=== PATIENT | female | born 1985 | race American Indian/Alaskan Native ===

== ENCOUNTER 2016-12-12 18:11 | Emergency (ER) | payer MEDICAID ==
[2016-12-12 20:41] LABS: CHLORIDE,CL 108 mmol/L (101-111); SODIUM,NA 143 mmol/L (135-145)
[2016-12-12] MEDS ORDERED: Sodium Chloride 0.9% 1,000 ML IV ONE (21:17)
[2016-12-12] MEDS ORDERED: Iopamidol 612 MG/ML 100 ML Bottle IVPUSH ONE (21:30)
--- NOTE | 2016-12-12 22:34 | EDM.PDOC ---
ED HPI GENERAL MEDICAL PROBLEM - General Chief Complaint: Abdominal Pain Stated Complaint: ABD PAINS, [id number] Time Seen by Provider: 12/12/16 20:15 Source of Information: Reports: Patient History Limitations: Reports: No Limitations - History of Present Illness INITIAL COMMENTS - FREE TEXT/NARRATIVE: abdominal pain since 2pm, points epigastric area then lower abdomen. States was to have IUD out in August and appointment rescheduled twice and never been back, concerned pain today is from that and just wants Mirana taken out. No menses since insertion of Mirina, Last BM today. No vomiting. Has not tried anything for pain, more comfortable lying on right side. No loss of appetite, requesting drink and fluids while waiting. Bilateral Lower Abdomen Pain Score (Numeric/FACES): 10 - Related Data Allergies Allergy/AdvReac Type Severity Reaction Status Date / Time No Known Allergies Allergy Verified 12/12/16 19:18 Home Meds: Home Meds . [No Known Home Meds] 12/12/16 [History] Past Medical History - Past Health History Medical/Surgical History: Denies Medical/Surgical History HEENT History: Reports: None Cardiovascular History: Reports: None Respiratory History: Reports: None Gastrointestinal History: Reports: None Genitourinary History: Reports: None FIRE FIGHTERS DISPATCHER History: Reports: None Musculoskeletal History: Reports: None Neurological History: Reports: None Psychiatric History: Reports: None Endocrine/Metabolic History: Reports: None Hematologic History: Reports: None Immunologic History: Reports: None Oncologic (Cancer) History: Reports: None Dermatologic History: Reports: None - Infectious Disease History Infectious Disease History: Reports: None - Past Surgical History Head Surgeries/Procedures: Reports: None Social & Family History - Family History Family Medical History: Noncontributory - Tobacco Use Smoking Status *Q: Current Every Day Smoker Years of Tobacco use: 18 Packs/Tins Daily: 0.3 Used Tobacco, but Quit: No Second Hand Smoke Exposure: Yes - Alcohol Use Days Per Week of Alcohol Use: 0 - Recreational Drug Use Recreational Drug Use: No Drug Use in Last 12 Months: Yes Recreational Drug Type: Reports: Ecstasy, Methamphetamine Recreational Drug Use Frequency: Daily - Living Situation & Occupation Living situation: Reports: with Significant Other ED ROS GENERAL - Review of Systems Review Of Systems: ROS reveals no pertinent complaints other than HPI. ED EXAM, GI/ABD - Physical Exam Exam: See Below Exam Limited By: No Limitations General Appearance: Alert, Mild Distress Ears: Normal External Exam Throat/Mouth: Normal Inspection Head: Atraumatic, Normocephalic Neck: Normal Inspection Respiratory/Chest: No Respiratory Distress, Lungs Clear, No Accessory Muscle Use Cardiovascular: Normal Peripheral Pulses, Regular Rate, Rhythm GI/Abdominal: Normal Bowel Sounds, Soft, Tenderness (generalized). No: Guarding , Rebound, Rigidity Extremities: Normal Inspection Neurological: Alert, Oriented, Normal Cognition Course - Vital Signs Last Recorded V/S: Last Vital Signs Temp 97.7 F 12/12/16 22:38 Pulse 70 12/12/16 22:38 Resp 18 12/12/16 22:38 BP 122/72 12/12/16 22:38 Pulse Ox 100 12/12/16 22:38 - Orders/Labs/Meds Labs: Laboratory Tests 12/12/16 12/12/16 12/12/16 Range/Units 19:24 19:24 19:24 WBC (5.0-10.0) 10^3/uL RBC (4.2-5.4) 10^6/uL Hgb (12.0-16.0) g/dL Hct (37.0-47.0) % MCV (80-100) fL MCH (27.0-34.0) pg MCHC (33.0-35.0) g/dL Plt Count (150-450) 10^3/uL Neut % (Auto) (42.2-75.2) % Lymph % (Auto) (20.5-50.1) % Parker % (Auto) (2-8) % Eos % (Auto) (1.0-3.0) % Baso % (Auto) (0.0-1.0) % Sodium (135-145) mmol/L Potassium (3.6-5.0) mmol/L Chloride (101-111) mmol/L Carbon Dioxide (21.0-31.0) mmol/L Anion Gap BUN (7-18) mg/dL Creatinine (0.6-1.3) mg/dL Est Cr Clr Drug Dosing mL/min Estimated GFR (MDRD) BUN/Creatinine Ratio Glucose (74-105) mg/dL Calcium (8.4-10.2) mg/dl Total Bilirubin (0.2-1.0) mg/dL AST (10-42) IU/L ALT (10-60) IU/L Alkaline Phosphatase (42-121) IU/L Total Protein (6.7-8.2) g/dl Albumin (3.2-5.5) g/dl Globulin Albumin/Globulin Ratio Amylase (28-100) U/L Lipase (22-51) U/L Urine Color Yellow (YELLOW) Urine Appearance Slightly cloudy (CLEAR) Urine pH 5.5 (5.0-9.0) Ur Specific Wright >= 1.030 (1.005-1.030) Urine Protein Trace H (NEGATIVE) Urine Glucose (UA) Negative (NEGATIVE) Urine Ketones 15 H (NEGATIVE) Urine Occult Blood Negative (NEGATIVE) Urine Nitrite Negative (NEGATIVE) Urine Bilirubin Small H (NEGATIVE) Urine Urobilinogen 0.2 (0.2-1.0) mg/dL Ur Leukocyte Esterase Negative (NEGATIVE) Urine RBC 0-5 /HPF Urine WBC 0-5 (0-5/HPF) /HPF Ur Epithelial Cells Moderate H /HPF Urine Bacteria Many H (0-FEW/HPF) /HPF Urine Mucus Moderate H /LPF Urine HCG, Qual Negative Urine Opiates Screen Negative (NEGATIVE) Ur Oxycodone Screen Positive H (NEGATIVE) Urine Methadone Screen Negative (NEGATIVE) Ur Barbiturates Screen Negative (NEGATIVE) U Tricyclic Antidepress Negative (NEGATIVE) Ur Phencyclidine Scrn Negative (NEGATIVE) Ur Amphetamine Screen Negative (NEGATIVE) U Methamphetamines Scrn Negative (NEGATIVE) Urine MDMA Screen Negative (NEGATIVE) U Benzodiazepines Scrn Negative (NEGATIVE) Urine Cocaine Screen Negative (NEGATIVE) U Marijuana (THC) Screen Negative (NEGATIVE) 12/12/16 12/12/16 Range/Units 20:15 20:15 WBC 12.7 H (5.0-10.0) 10^3/uL RBC 4.55 (4.2-5.4) 10^6/uL Hgb 13.1 (12.0-16.0) g/dL Hct 40.3 (37.0-47.0) % MCV 88.6 (80-100) fL MCH 28.8 (27.0-34.0) pg MCHC 32.5 L (33.0-35.0) g/dL Plt Count 356 (150-450) 10^3/uL Neut % (Auto) 83.6 H (42.2-75.2) % Lymph % (Auto) 10.7 L (20.5-50.1) % Parker % (Auto) 5.3 (2-8) % Eos % (Auto) 0.2 L (1.0-3.0) % Baso % (Auto) 0.2 (0.0-1.0) % Sodium 143 (135-145) mmol/L Potassium 4.1 (3.6-5.0) mmol/L Chloride 108 (101-111) mmol/L Carbon Dioxide 26.0 (21.0-31.0) mmol/L Anion Gap 13.1 BUN 8 (7-18) mg/dL Creatinine 0.7 (0.6-1.3) mg/dL Est Cr Clr Drug Dosing 87.87 mL/min Estimated GFR (MDRD) > 60 BUN/Creatinine Ratio 11.42 Glucose 111 H (74-105) mg/dL Calcium 9.2 (8.4-10.2) mg/dl Total Bilirubin 0.4 (0.2-1.0) mg/dL AST 18 (10-42) IU/L ALT 21 (10-60) IU/L Alkaline Phosphatase 77 (42-121) IU/L Total Protein 7.5 (6.7-8.2) g/dl Albumin 4.1 (3.2-5.5) g/dl Globulin 3.4 Albumin/Globulin Ratio 1.21 Amylase 54 (28-100) U/L Lipase 21 L (22-51) U/L Urine Color (YELLOW) Urine Appearance (CLEAR) Urine pH (5.0-9.0) Ur Specific Wright (1.005-1.030) Urine Protein (NEGATIVE) Urine Glucose (UA) (NEGATIVE) Urine Ketones (NEGATIVE) Urine Occult Blood (NEGATIVE) Urine Nitrite (NEGATIVE) Urine Bilirubin (NEGATIVE) Urine Urobilinogen (0.2-1.0) mg/dL Ur Leukocyte Esterase (NEGATIVE) Urine RBC /HPF Urine WBC (0-5/HPF) /HPF Ur Epithelial Cells /HPF Urine Bacteria (0-FEW/HPF) /HPF Urine Mucus /LPF Urine HCG, Qual Urine Opiates Screen (NEGATIVE) Ur Oxycodone Screen (NEGATIVE) Urine Methadone Screen (NEGATIVE) Ur Barbiturates Screen (NEGATIVE) U Tricyclic Antidepress (NEGATIVE) Ur Phencyclidine Scrn (NEGATIVE) Ur Amphetamine Screen (NEGATIVE) U Methamphetamines Scrn (NEGATIVE) Urine MDMA Screen (NEGATIVE) U Benzodiazepines Scrn (NEGATIVE) Urine Cocaine Screen (NEGATIVE) U Marijuana (THC) Screen (NEGATIVE) Meds: Medications Discontinued Medications Generic Name Dose Route Start Last Admin Trade Name Chaseq PRN Reason Stop Dose Admin Sodium Chloride 1,000 mls @ 999 mls/hr 12/12/16 21:17 12/12/16 21:17 Normal Saline IV 12/12/16 22:17 999 mls/hr .BOLUS ONE Administration Iopamidol 100 ml 12/12/16 21:30 12/12/16 21:30 Isovue-300 (61%) IVPUSH 12/12/16 21:31 100 ml ONETIME ONE Administration Ketorolac Tromethamine 30 mg 12/12/16 22:37 12/12/16 22:40 Toradol IVPUSH 12/12/16 22:38 30 mg ONETIME ONE Administration - Radiology Interpretation Free Text/Narrative:: Abominal CT with contrast negative. - Re-Assessments/Exams Free Text/Narrative Re-Assessment/Exam: 12/12/16 22:30 Patient informed ER was not appropriate setting for IUD removal and would need to be by her primary in clinic. Patient informed of negative CT results. Large volume of stool is present in area of discomfort . Departure - Departure Time of Disposition: 22:31 Disposition: Home, Self-Care 01 Condition: good Clinical Impression: Constipation Abdominal pain Qualifiers: Abdominal location: upper abdomen, unspecified Qualified Code(s): R10.10 - Upper abdominal pain, unspecified - Discharge Information Instructions: Abdominal Pain, Adult, [id number] Referrals: PCP,None [Primary Care Provider] - Forms: ED Department Discharge Additional Instructions: follow up with [facility] care for IUD removal tylenol or ibuprofen for discomfort, warm pack to abdomen increase fluids fruit in diet.
[2016-12-12] MEDS ORDERED: Ketorolac 30 MG/ML SDV IVPUSH ONE (22:37)
[2016-12-12 22:38] VITALS: BP 122/72
== END 2016-12-12 22:48 | disposition home or self-care (01) ==
LOC: DL.ED 18:11
DX: K59.00 Constipation, unspecified (principal); R10.13 Epigastric pain; F17.210 Nicotine dependence, cigarettes, uncomplicated
CPT/HCPCS: 36415; 74177; 80053; 80305; 81001; 81025; 82150; 83690; 85025; 96361; 96374; 99284; J1885; J7030; Q9967

== ENCOUNTER 2017-01-06 15:48 | Emergency (ER) | payer MEDICAID | END 2017-01-06 18:42 | disposition left against medical advice (07) | LOC: DL.ED 15:48 | CPT/HCPCS: 99283 ==

== ENCOUNTER 2017-11-25 02:37 | Emergency (ER) | payer MEDICAID, SELFPAY ==
[2017-11-25] MEDS ORDERED: Iopamidol 612 MG/ML 100 ML Bottle IVPUSH ONE (02:41)
[2017-11-25 03:00] LABS: CHLORIDE,CL 107 mmol/L (101-111); SODIUM,NA 136 mmol/L (135-145)
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
== END 2017-11-25 06:56 ==
LOC: DL.ED 02:37
DX: F15.10 Other stimulant abuse, uncomplicated (principal); F10.129 Alcohol abuse with intoxication, unspecified; Y90.8 Blood alcohol level of 240 mg/100 ml or more; Y04.0XXA Assault by unarmed brawl or fight, initial encounter
CPT/HCPCS: 36415; 70450; 71260; 72125; 74177; 80053; 80305; 81001; 84703; 85025; 85610; 99291; 99292; G0480; Q9967

== ENCOUNTER 2017-11-27 20:05 | Emergency (ER) | payer MEDICAID | END 2017-11-27 20:13 | disposition left against medical advice (07) | LOC: DL.ED 20:05 | DX: Z53.21 Procedure and treatment not carried out due to patient leaving prior to being seen by health care provider (principal) ==

== ENCOUNTER 2018-01-23 18:58 | Emergency (ER) | payer SELFPAY ==
[2018-01-23] MEDS ORDERED: Penicillin G Benzathine/Procaine 600-600 1.2 Millunits/2 ML Syringe IM ONE (20:10)
--- NOTE | 2018-01-23 20:14 | EDM.PDOC ---
ED HPI GENERAL MEDICAL PROBLEM - General Chief Complaint: ENT Problem Stated Complaint: [id number] CANT SWALLOW TONSILS ARE SWOLLEN Time Seen by Provider: 01/23/18 20:05 Source of Information: Reports: Patient History Limitations: Reports: No Limitations - History of Present Illness INITIAL COMMENTS - FREE TEXT/NARRATIVE: This 32 yo female patient reports to the Ed with a sore throat that has been getting worse since Monday. The patient reports she has not been able to eat or drink due to the swelling and pain in the back of her throat. The patient has not been seen in the Clinic at this time for her current symptoms. 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 [No Known Home Meds] 12/12/16 [History] Past Medical History - Past Health History Medical/Surgical History: Denies Medical/Surgical History HEENT History: Reports: None Cardiovascular History: Reports: None Respiratory History: Reports: None Gastrointestinal History: Reports: None Genitourinary History: Reports: None FAMILY DEVELOPMENT SPECIALIST History: Reports: Other (See Below) Other FAMILY DEVELOPMENT SPECIALIST History: states she had the Mirena placed in 2011. Was to have it removed a couple years ago but has not done this. Musculoskeletal History: Reports: None Neurological History: Reports: None Psychiatric History: Reports: None Endocrine/Metabolic History: Reports: None Hematologic History: Reports: None Immunologic History: Reports: None Oncologic (Cancer) History: Reports: None Dermatologic History: Reports: None - Infectious Disease History Infectious Disease History: Reports: None - Past Surgical History Head Surgeries/Procedures: Reports: None Social & Family History - Family History Family Medical History: Noncontributory - Tobacco Use Smoking Status *Q: Current Every Day Smoker Years of Tobacco use: 10 Packs/Tins Daily: 1 - Caffeine Use Caffeine Use: Reports: Soda - Recreational Drug Use Recreational Drug Use: No - Living Situation & Occupation Living situation: Reports: with Significant Other ED ROS ENT - Review of Systems Review Of Systems: ROS reveals no pertinent complaints other than HPI. ED EXAM, ENT - Physical Exam Exam: See Below Exam Limited By: No Limitations General Appearance: Alert, WD/WN, Moderate Distress Eye Exam: Bilateral Eye: EOMI, Normal Inspection, PERRL Ears: Normal External Exam, Normal Canal, Hearing Grossly Normal, Normal TMs Nose: Normal Inspection, Normal Mucousa, No Blood Mouth/Throat: Muffled Voice, Tonsillar Erythema, Tonsillar Swelling Head: Atraumatic, Normocephalic Neck: Full Range of Motion, Lymphadenopathy (L), Lymphadenopathy (R) Respiratory/Chest: No Respiratory Distress, Lungs Clear, Normal Breath Sounds, No Accessory Muscle Use, Chest Non-Tender Cardiovascular: Normal Peripheral Pulses, Regular Rate, Rhythm, No Edema, No Gallop, No JVD, No Murmur, No Rub GI/Abdominal: Normal Bowel Sounds, Soft, Non-Tender, No Organomegaly, No Distention, No Abnormal Bruit, No Mass (Female) Exam: Deferred Rectal (Female) Exam: Deferred Back: Normal Inspection, Full Range of Motion Extremities: Normal Inspection, Normal Range of Motion, Non-Tender, No Pedal Edema, Normal Capillary Refill Neurological: Alert, Oriented, CN II-XII Intact, Normal Cognition, Normal Gait, Normal Reflexes, No Motor/Sensory Deficits Psychiatric: Normal Affect, Normal Mood Skin: Warm, Dry, Intact, Normal Color, No Rash Lymphatic: No Adenopathy Course - Vital Signs Last Recorded V/S: Last Vital Signs Temp 37.2 C 01/23/18 19:09 Pulse 105 H 01/23/18 19:09 Resp 15 01/23/18 19:09 BP 144/78 H 01/23/18 19:09 Pulse Ox 97 01/23/18 19:09 - Orders/Labs/Meds Meds: Medications Discontinued Medications Generic Name Dose Route Start Last Admin Trade Name Freq PRN Reason Stop Dose Admin Penicillin G Procaine/Benzathine 1.2 millunits 01/23/18 20:10 Bicillin C-R 600/600 IM 01/23/18 20:11 ONETIME ONE Departure - Departure Time of Disposition: 20:12 Disposition: Home, Self-Care 01 Condition: Fair Clinical Impression: Strep pharyngitis - Discharge Information *PRESCRIPTION DRUG MONITORING PROGRAM REVIEWED*: Not Applicable *COPY OF PRESCRIPTION DRUG MONITORING REPORT IN PATIENT MIKE: Not Applicable Instructions: Strep Throat, [id number] Referrals: PCP,None [Primary Care Provider] - Forms: ED Department Discharge Care Plan Goals: The patient was advised of the examination and lab results during the visit. The patient was given an injection of Bicillin while in the ED. The patient was discharged with a script for Azithromycin (500 mg) #5 to take 1 by mouth daily for 5 days (starting tomorrow). The patient was encouraged to take over-the- counter medications for temporary symptom relief. If the patient has any additional symptoms or concerns, the patient should follow-up with her primary care facility or return to the emergency department.
[2018-01-23 20:26] VITALS: BP 129/82
== END 2018-01-23 20:38 | disposition home or self-care (01) ==
LOC: DL.ED 18:58
DX: J02.0 Streptococcal pharyngitis (principal); F17.210 Nicotine dependence, cigarettes, uncomplicated
CPT/HCPCS: 87430; 96372; 99283; J0558

== ENCOUNTER 2018-04-05 19:35 | Emergency (ER) | payer MEDICAID ==
[2018-04-05 22:23] VITALS: BP 117/69
[2018-04-06] MEDS ORDERED: Ketorolac 30 MG/ML SDV IM ONE (01:21)
--- NOTE | 2018-04-06 01:26 | EDM.PDOC ---
ED HPI GENERAL MEDICAL PROBLEM - General Chief Complaint: ENT Problem Stated Complaint: SWOLLEN TONSILS [id number] Time Seen by Provider: 04/05/18 22:30 Source of Information: Reports: Patient History Limitations: Reports: No Limitations - History of Present Illness INITIAL COMMENTS - FREE TEXT/NARRATIVE: c/o severe sore throat, "needs something for pain" cant sleep. At [facility] today, flu and strep negative. No fever or cough.Stated given bottle of liquid amoxicillin and drank most of the bottle and still not helping. Throat Pain Score (Numeric/FACES): 10 - Related Data Allergies Allergy/AdvReac Type Severity Reaction Status Date / Time No Known Allergies Allergy Verified 04/05/18 22:18 Home Meds: Home Meds Amoxicillin 10 ml PO BID 04/05/18 [History] Past Medical History - Past Health History Medical/Surgical History: Denies Medical/Surgical History HEENT History: Reports: None Cardiovascular History: Reports: None Respiratory History: Reports: None Gastrointestinal History: Reports: None Genitourinary History: Reports: None JUDGE'S CLERK History: Reports: Other (See Below) Other JUDGE'S CLERK History: states she had the Mirena placed in 2011. Was to have it removed a couple years ago but has not done this. Musculoskeletal History: Reports: None Neurological History: Reports: None Psychiatric History: Reports: None Endocrine/Metabolic History: Reports: None Hematologic History: Reports: None Immunologic History: Reports: None Oncologic (Cancer) History: Reports: None Dermatologic History: Reports: None - Infectious Disease History Infectious Disease History: Reports: None - Past Surgical History Head Surgeries/Procedures: Reports: None Social & Family History - Family History Family Medical History: Noncontributory - Tobacco Use Smoking Status *Q: Never Smoker - Caffeine Use Caffeine Use: Reports: Coffee, Energy Drinks, Soda - Recreational Drug Use Recreational Drug Use: No - Living Situation & Occupation Living situation: Reports: with Significant Other ED ROS ENT - Review of Systems Review Of Systems: ROS reveals no pertinent complaints other than HPI. ED EXAM, ENT - Physical Exam Exam: See Below Exam Limited By: No Limitations General Appearance: Alert, Anxious Eye Exam: Bilateral Eye: PERRL Ears: Normal External Exam, Normal TMs Nose: Normal Inspection Mouth/Throat: Pharyngeal Erythema, Tonsillar Erythema, Tonsillar Swelling. No: Uvular Deviation, Uvular Edema Head: Atraumatic, Normocephalic Neck: Normal Inspection, Full Range of Motion Respiratory/Chest: No Respiratory Distress, Lungs Clear, Normal Breath Sounds Cardiovascular: Normal Peripheral Pulses, Regular Rate, Rhythm GI/Abdominal: Normal Bowel Sounds Extremities: Normal Inspection Neurological: Alert, Oriented Psychiatric: Anxious, Other (tearful, swearing frequently, , frequent ) Skin: Warm, Dry, Intact, Normal Color. No: Rash Course - Vital Signs Last Recorded V/S: Last Vital Signs Temp 97.9 F 04/05/18 22:20 Pulse 88 04/05/18 22:20 Resp 16 04/05/18 22:20 BP 117/69 04/05/18 22:20 Pulse Ox 100 04/05/18 22:20 - Orders/Labs/Meds Meds: Medications Discontinued Medications Generic Name Dose Route Start Last Admin Trade Name Kt PRN Reason Stop Dose Admin Ketorolac Tromethamine 30 mg 04/06/18 01:21 04/06/18 01:30 Toradol IM 04/06/18 01:22 30 mg ONETIME ONE Administration - Re-Assessments/Exams Free Text/Narrative Re-Assessment/Exam: Toradol given, instructed by RN would need to wait following injection, swearing at nurse, stating she would not wait. Agitated that was not getting anything additional to treat pain. Signed AMA form and left Departure - Departure Time of Disposition: 01:21 Disposition: Against Medical Advice 07 Condition: Good Clinical Impression: Pharyngitis Qualifiers: Pharyngitis/tonsillitis etiology: unspecified etiology Qualified Code(s): J02.9 - Acute pharyngitis, unspecified - Discharge Information *PRESCRIPTION DRUG MONITORING PROGRAM REVIEWED*: No Instructions: Sore Throat, [id number] Referrals: PCP,None [Ordering Only Provider] - Forms: ED Department Discharge Additional Instructions: continue alternating tylenol 650mg and ibuprofen 600mg every 4 hours as needed for fever/ discomfort chloraseptic throat spray as needed benadryl 25mg at bedtime as needed for sleep salt water gargles every 2 hours as needed increase fluid intake continue antibiotic as directed
== END 2018-04-06 01:35 | disposition left against medical advice (07) ==
LOC: DL.ED 19:35
DX: J02.9 Acute pharyngitis, unspecified (principal)
CPT/HCPCS: 87081; 87430; 96372; 99283; J1885

== ENCOUNTER 2018-10-27 18:47 | Emergency (ER) | payer MEDICAID ==
[2018-10-27] MEDS ORDERED: Penicillin G Potassium 5 MILLUNITS in Sodium Chloride 0.9% 100 ML IV ONE (19:03)
[2018-10-27] MEDS ORDERED: Sodium Chloride 0.9% 1,000 ML IV ONE (19:03)
--- NOTE | 2018-10-27 19:09 | EDM.PDOC ---
ED HPI GENERAL MEDICAL PROBLEM - General Chief Complaint: ENT Problem Stated Complaint: THROAT HURTS Time Seen by Provider: 10/27/18 19:04 Source of Information: Reports: Patient History Limitations: Reports: No Limitations - History of Present Illness INITIAL COMMENTS - FREE TEXT/NARRATIVE: onset Sx last night, worse today, hard to swallow. 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, NSAIDS Throat Pain Score (Numeric/FACES): 10 - Related Data Allergies Allergy/AdvReac Type Severity Reaction Status Date / Time No Known Allergies Allergy Verified 10/27/18 18:54 Home Meds: Home Meds Buprenorphine HCl/Naloxone HCl [Suboxone 12 mg-3 mg Sl Film] 1 dose PO DAILY [History] buPROPion [Wellbutrin] 100 mg PO BEDTIME 10/27/18 [History] Past Medical History - Past Health History Medical/Surgical History: Denies Medical/Surgical History HEENT History: Reports: None Cardiovascular History: Reports: None Respiratory History: Reports: None Gastrointestinal History: Reports: None Genitourinary History: Reports: None REGULATORY ANALYST History: Reports: Other (See Below) Other REGULATORY ANALYST History: states she had the Mirena placed in 2011. Was to have it removed a couple years ago but has not done this. Musculoskeletal History: Reports: None Neurological History: Reports: None Psychiatric History: Reports: None Endocrine/Metabolic History: Reports: None Hematologic History: Reports: None Immunologic History: Reports: None Oncologic (Cancer) History: Reports: None Dermatologic History: Reports: None - Infectious Disease History Infectious Disease History: Reports: None - Past Surgical History Head Surgeries/Procedures: Reports: None Social & Family History - Family History Family Medical History: Noncontributory - Caffeine Use Caffeine Use: Reports: Coffee, Energy Drinks, Soda - Living Situation & Occupation Living situation: Reports: with Significant Other ED ROS ENT - Review of Systems Review Of Systems: ROS reveals no pertinent complaints other than HPI. ED EXAM, ENT - Physical Exam Exam: See Below Exam Limited By: No Limitations General Appearance: Alert, WD/WN, Mild Distress, Other (discomfort) Ears: Hearing Grossly Normal Mouth/Throat: Pharyngeal Erythema, Tonsillar Erythema, Tonsillar Swelling, Other (right>, peritonsillar abscess without drainage) Head: Atraumatic Neck: Non-Tender, Full Range of Motion, Lymphadenopathy (R) Respiratory/Chest: No Respiratory Distress, Lungs Clear, Normal Breath Sounds Cardiovascular: Regular Rate, Rhythm GI/Abdominal: Soft, Non-Tender Neurological: Alert, Oriented, Normal Cognition, Normal Gait, No Motor/Sensory Deficits Psychiatric: Flat Affect Skin: Warm, Dry, Normal Color Lymphatic: Adenopathy (right cervical) Course - Vital Signs Last Recorded V/S: Last Vital Signs Temp 35.9 C 10/27/18 19:10 Pulse 84 10/27/18 19:10 Resp 18 10/27/18 19:10 BP 121/70 10/27/18 19:10 Pulse Ox 99 10/27/18 19:10 - Orders/Labs/Meds Orders: Active Orders 24 hr Category Date Time Status CULTURE STREP A CONFIRMATION [RM] Stat Lab 10/27/18 07:05 Results STREP SCRN A RAPID W CULT CONF [] Stat Lab 10/27/18 07:05 Results Meds: Medications Discontinued Medications Generic Name Dose Route Start Last Admin Trade Name Freq PRN Reason Stop Dose Admin Penicillin G Potassium 5 100 mls @ 200 mls/hr 10/27/18 19:03 10/27/18 19:47 millunits/ Sodium Chloride IV 10/27/18 19:32 200 mls/hr ONETIME ONE Administration Sodium Chloride 1,000 mls @ 999 mls/hr 10/27/18 19:03 10/27/18 19:21 Normal Saline IV 10/27/18 20:03 999 mls/hr .BOLUS ONE Administration - Re-Assessments/Exams Free Text/Narrative Re-Assessment/Exam: 10/27/18 20:51 re-exam; s/p IV + Rx = much better. Departure - Departure Time of Disposition: 20:53 Disposition: Home, Self-Care 01 Condition: Good Clinical Impression: Peritonsillar abscess - Discharge Information Instructions: Peritonsillar Abscess, [id number] Forms: ED Department Discharge Additional Instructions: 1) avoid solid foods next 48 hours 2) have liquids and soft foods 3) take tylenol or motrin for fever 4) recheck if feels worse rx given; z-wander - My Orders Last 24 Hours: My Active Orders 10/27/18 07:05 CULTURE STREP A CONFIRMATION [RM] Stat STREP SCRN A RAPID W CULT CONF [] Stat - Assessment/Plan Last 24 Hours: My Active Orders 04/27/19 07:05 CULTURE STREP A CONFIRMATION [RM] Stat STREP SCRN A RAPID W CULT CONF [RM] Stat
[2018-10-27 19:16] VITALS: BP 121/70
== END 2018-10-27 20:59 | disposition home or self-care (01) ==
LOC: DL.ED 18:47
DX: J36 Peritonsillar abscess (principal)
CPT/HCPCS: 87081; 87430; 96365; 99283; J2540; J7030; J7050

== ENCOUNTER 2019-09-23 21:51 | Emergency (ER) | payer MEDICAID, OTHER ==
[2019-09-23 22:07] VITALS: BP 120/76; PULSE 109
== END 2019-09-23 22:44 | disposition left against medical advice (07) ==
LOC: DL.ED 21:51
DX: Z53.21 Procedure and treatment not carried out due to patient leaving prior to being seen by health care provider (principal)
CPT/HCPCS: 87804

== ENCOUNTER 2020-05-23 19:31 | Emergency (ER) | payer MEDICAID, OTHER ==
[2020-05-23 19:54] VITALS: BP 134/69; PULSE 81
[2020-05-23] MEDS ORDERED: Sulfamethoxazole/Trimethoprim 800-160 MG Tab PO ONE (20:22)
[2020-05-23] MEDS ORDERED: Phenazopyridine 95 MG Tab PO ONE (20:22)
--- NOTE | 2020-05-23 20:29 | EDM.PDOC ---
ED HPI GENERAL MEDICAL PROBLEM - General Chief Complaint: Genitourinary Problem Stated Complaint: URINATION PAIN AND IRRITATION Time Seen by Provider: 05/23/20 20:24 Source of Information: Reports: Patient History Limitations: Reports: No Limitations - History of Present Illness INITIAL COMMENTS - FREE TEXT/NARRATIVE: onset Sx yesterday Lower Abdomen Pain Score (Numeric/FACES): 6 - Related Data Allergies Allergy/AdvReac Type Severity Reaction Status Date / Time No Known Allergies Allergy Verified 05/23/20 19:54 Home Meds: Home Meds . [No Known Home Meds] 09/23/19 [History] Past Medical History - Past Health History Medical/Surgical History: Denies Medical/Surgical History HEENT History: Reports: None Cardiovascular History: Reports: None Respiratory History: Reports: None Gastrointestinal History: Reports: None Genitourinary History: Reports: None APPLIED ANTHROPOLOGIST History: Reports: Other (See Below) Other APPLIED ANTHROPOLOGIST History: states she had the Mirena placed in 2011. Was to have it removed a couple years ago but has not done this. Musculoskeletal History: Reports: None Neurological History: Reports: None Psychiatric History: Reports: None Endocrine/Metabolic History: Reports: None Hematologic History: Reports: None Immunologic History: Reports: None Oncologic (Cancer) History: Reports: None Dermatologic History: Reports: None - Infectious Disease History Infectious Disease History: Reports: None - Past Surgical History Head Surgeries/Procedures: Reports: None Social & Family History - Family History Family Medical History: No Pertinent Family History - Tobacco Use Tobacco Use Status *Q: Current Every Day Tobacco User Years of Tobacco use: 2 Packs/Tins Daily: 0.2 - Caffeine Use Caffeine Use: Reports: Coffee, Energy Drinks - Recreational Drug Use Recreational Drug Use: No - Living Situation & Occupation Living situation: Reports: with Significant Other ED ROS GENERAL - Review of Systems Review Of Systems: Comprehensive ROS is negative, except as noted in HPI. ED EXAM, RENAL/ - Physical Exam Exam: See Below Exam Limited By: No Limitations General Appearance: Alert, WD/WN, Mild Distress, Other (discomfort). No: Active Emesis Ears: Hearing Grossly Normal Throat/Mouth: Normal Voice, No Airway Compromise Head: Atraumatic Neck: Non-Tender, Full Range of Motion Respiratory/Chest: No Respiratory Distress Cardiovascular: Regular Rate, Rhythm GI/Abdominal: Soft, Non-Tender, Other (minimal suprapubic discomofrt) (Female) Exam: Deferred Rectal (Female) Exam: Deferred Neurological: Alert, Oriented, Normal Cognition, Normal Gait, No Motor/Sensory Deficits Psychiatric: Tearful Skin Exam: Warm, Dry, Normal Color Lymphatic: No Adenopathy Course - Vital Signs Last Recorded V/S: Last Vital Signs Temp 35.9 C L 05/23/20 19:46 Pulse 81 05/23/20 19:46 Resp 18 05/23/20 19:46 BP 134/69 05/23/20 19:46 Pulse Ox 99 05/23/20 19:46 - Orders/Labs/Meds Orders: Active Orders 24 hr Category Date Time Status CULTURE URINE [RM] Stat Lab 05/23/20 19:38 Received Labs: Laboratory Tests 05/23/20 05/23/20 Range/Units 19:38 19:38 Urine Color Yellow (YELLOW) Urine Appearance Slightly cloudy (CLEAR) Urine pH 6.0 (5.0-9.0) Ur Specific [place] >= 1.030 (1.005-1.030) Urine Protein Trace H (NEGATIVE) Urine Glucose (UA) Negative (NEGATIVE) Urine Ketones Trace H (NEGATIVE) Urine Occult Blood Negative (NEGATIVE) Urine Nitrite Negative (NEGATIVE) Urine Bilirubin Negative (NEGATIVE) Urine Urobilinogen 0.2 (0.2-1.0) mg/dL Ur Leukocyte Esterase Trace H (NEGATIVE) Urine RBC 0-5 /HPF Urine WBC 0-5 (0-5/HPF) /HPF Ur Epithelial Cells Moderate H (NOT SEEN) /HPF Amorphous Sediment Few (NOT SEEN) /HPF Urine Bacteria Few (0-FEW/HPF) /HPF Urine Mucus Few H (NOT SEEN) /LPF Urine HCG, Qual Negative Meds: Medications Discontinued Medications Generic Name Dose Route Start Last Admin Trade Name Freq PRN Reason Stop Dose Admin Phenazopyridine HCl 95 mg 05/23/20 20:22 Urinary Pain Relief PO 05/23/20 20:23 ONETIME ONE Trimethoprim/Sulfamethoxazole 1 tab 05/23/20 20:22 Septra Ds PO 05/23/20 20:23 ONETIME ONE - Re-Assessments/Exams Free Text/Narrative Re-Assessment/Exam: 05/23/20 20:28 rsults discussed with pt. Departure - Departure Time of Disposition: 20:28 Disposition: Home, Self-Care 01 Condition: Good Clinical Impression: UTI, Urinary tract infectious disease - Discharge Information Instructions: Urinary Tract Infection, Adult, [id number] Additional Instructions: 1) drink lots of liquids 2) follow up at clinic rx given; bactrim DS bid x 20 pyridium 100mg tid prn x 12 Sepsis Event Note (ED) - Evaluation Sepsis Screening Result: No Definite Risk - Focused Exam Vital Signs: Vital Signs Temp Pulse Resp BP Pulse Ox 05/23/20 19:46 35.9 C L 81 18 134/69 99 - My Orders Last 24 Hours: My Active Orders 05/23/20 19:38 CULTURE URINE [RM] Stat - Assessment/Plan Last 24 Hours: My Active Orders 05/23/20 19:38 CULTURE URINE [RM] Stat
== END 2020-05-23 20:36 | disposition home or self-care (01) ==
LOC: DL.ED 19:31
DX: N39.0 Urinary tract infection, site not specified (principal); F17.210 Nicotine dependence, cigarettes, uncomplicated
CPT/HCPCS: 81001; 81025; 87086; 99283; A9270

== ENCOUNTER 2020-10-24 18:36 | Emergency (ER) | payer MEDICAID, OTHER ==
--- NOTE | 2020-10-24 21:42 | EDM.PDOC ---
ED HPI GENERAL MEDICAL PROBLEM - General Chief Complaint: ENT Problem Stated Complaint: TOOTH PULLED YESTERDAY Time Seen by Provider: 10/24/20 21:49 Source of Information: Reports: Patient History Limitations: Reports: No Limitations - History of Present Illness INITIAL COMMENTS - FREE TEXT/NARRATIVE: Patient comes emergency department today with complaints of right lower dental pain. This patient had a tooth extracted in the dental office yesterday. She has been taking ibuprofen without relief of pain. It is gotten quite a bit worse throughout the day and kind of radiating up her jaw. No difficulty swallowing breathing. No drooling. She is not on any antibiotics. She is concerned for a possible infection. She has no trismus. No fever no chills. No difficulty swallowing or breathing. No Covid exposure no Covid symptoms. Tooth/Teeth Pain Score (Numeric/FACES): 10 - Related Data Allergies Allergy/AdvReac Type Severity Reaction Status Date / Time No Known Allergies Allergy Verified 10/24/20 19:48 Home Meds: Home Meds . [No Known Home Meds] 09/23/19 [History] Past Medical History - Past Health History Medical/Surgical History: Denies Medical/Surgical History HEENT History: Reports: None Cardiovascular History: Reports: None Respiratory History: Reports: None Gastrointestinal History: Reports: None Genitourinary History: Reports: None SHOP MANAGER History: Reports: Other (See Below) Other SHOP MANAGER History: states she had the Mirena placed in 2011. Was to have it removed a couple years ago but has not done this. Musculoskeletal History: Reports: None Neurological History: Reports: None Psychiatric History: Reports: None Endocrine/Metabolic History: Reports: None Hematologic History: Reports: None Immunologic History: Reports: None Oncologic (Cancer) History: Reports: None Dermatologic History: Reports: None - Infectious Disease History Infectious Disease History: Reports: None - Past Surgical History Head Surgeries/Procedures: Reports: None Social & Family History - Family History Family Medical History: No Pertinent Family History - Tobacco Use Tobacco Use Status *Q: Never Tobacco User Second Hand Smoke Exposure: Yes - Caffeine Use Caffeine Use: Reports: Energy Drinks, Soda - Recreational Drug Use Recreational Drug Use: No - Living Situation & Occupation Living situation: Reports: with Significant Other ED ROS ENT - Review of Systems Review Of Systems: Comprehensive ROS is negative, except as noted in HPI. ED EXAM, ENT - Physical Exam Exam: See Below Exam Limited By: No Limitations General Appearance: Alert, WD/WN, No Apparent Distress Eye Exam: Bilateral Eye: EOMI Ears: Normal External Exam, Normal TMs Nose: Normal Inspection, Normal Mucousa Mouth/Throat: Dental Pain (In the area of tooth #30 there is an extraction site. This is exquisitely tender. There is no swelling redness induration concern for abscess. There is some granulation tissue in the base of the extraction site of the tooth.), Dental Tenderness (In the area of tooth #30). No: Drooling, Gum Swelling, Trismus, Uvular Deviation, Uvular Edema Head: Atraumatic, Normocephalic (There is no facial swelling). No: Facial Swelling, Facial Tenderness Neck: Normal Inspection, Supple, Non-Tender, Full Range of Motion Respiratory/Chest: No Respiratory Distress Cardiovascular: Normal Peripheral Pulses Neurological: Alert, Oriented, CN II-XII Intact, Normal Cognition, No Motor/Sensory Deficits Psychiatric: Normal Affect, Normal Mood Skin: Warm, Dry, Intact, Normal Color, No Rash Course - Vital Signs Last Recorded V/S: Last Vital Signs Temp 98.5 F 10/24/20 22:41 Pulse 62 10/24/20 22:41 Resp 16 10/24/20 22:41 BP 101/48 L 10/24/20 22:41 Pulse Ox 100 10/24/20 22:41 - Orders/Labs/Meds Meds: Medications Discontinued Medications Generic Name Dose Route Start Last Admin Trade Name Chaseq PRN Reason Stop Dose Admin Amoxicillin 500 mg 10/24/20 22:30 10/24/20 22:40 Amoxicillin 500 Mg Cap PO 10/24/20 22:31 500 mg ONETIME ONE Administration Bupivacaine HCl 30 ml 10/24/20 21:53 10/24/20 22:38 Bupivacaine 0.5% 30 Ml Sdv INJECT 10/24/20 21:54 30 ml ONETIME ONE Administration Bupivacaine HCl/Epinephrine Bitart 10 ml 10/24/20 21:49 10/24/20 22:38 Bupivacaine 0.5%/Epinephrine 1:200,000 10 Ml Sdv INJECT 10/24/20 21:50 Not Given ONETIME ONE Lidocaine HCl 30 ml 10/24/20 21:49 10/24/20 22:38 Lidocaine 1% 30 Ml Sdv INJECT 10/24/20 21:50 30 ml ONETIME ONE Administration - Re-Assessments/Exams Free Text/Narrative Re-Assessment/Exam: I do not see any overt signs of abscess formation or other pathology. I wonder if this is not just some sequelae of pain from the tooth extraction or some nerve root irritation from it. There appears to be good granulation tissue in the bed of the extracted tooth. After the risk and benefits of a inferior alveolar block were explained to the patient which is what she had yesterday after I examined the corner of her mouth she agreed to this. 1% lidocaine without epinephrine and 0.5% bupivacaine without epinephrine was mixed in a 50- 50 fashion. After the landmarks were identified for right inferior alveolar block. I inserted the needle at that site had no blood return with aspiration and I instilled approximately 5 mils of the above solution into the area. Patient tolerated the procedure well. No bleeding. She had almost instant pain relief completely. She was given a dose of amoxicillin we will send her home with a prescription of this for the next 5 days. She needs to see her dentist on Monday. Discharge directions as below are explained the patient she was comfortable with this plan and her questions are answered. Departure - Departure Time of Disposition: 22:32 Disposition: Home, Self-Care 01 Clinical Impression: Pain, dental - Discharge Information Forms: ED Department Discharge Additional Instructions: Tylenol and or Ibuprofen for pain. Amoxicillin first dose given in the ED and RX given to the patient. 1 tab twice daily for 5 days. See Dentist CURTIS return to the ED if new or worsening symptoms. Sepsis Event Note (ED) - Evaluation Sepsis Screening Result: No Definite Risk - Focused Exam Vital Signs: Vital Signs Temp Pulse Resp BP Pulse Ox 10/24/20 22:41 98.5 F 62 16 101/48 L 100 10/24/20 19:45 97.3 F 65 18 111/56 L 100
[2020-10-24] MEDS ORDERED: Bupivacaine 0.5%/EPINEPHrine 1:200,000 10 ML SDV INJECT ONE (21:49)
[2020-10-24] MEDS ORDERED: Lidocaine 1% 30 ML SDV INJECT ONE (21:49)
[2020-10-24] MEDS ORDERED: Bupivacaine 0.5% 30 ML SDV INJECT ONE (21:53)
[2020-10-24] MEDS ORDERED: Amoxicillin 500 MG Cap PO ONE (22:30)
[2020-10-24 22:42] VITALS: BP 101/48; PULSE 62
== END 2020-10-24 22:52 | disposition home or self-care (01) ==
LOC: DL.ED 18:36
DX: K08.89 Other specified disorders of teeth and supporting structures (principal)
CPT/HCPCS: 64400; 99282; 99283; A9270; J3490

== ENCOUNTER 2021-02-17 18:32 | Emergency (ER) | payer OTHER, MEDICAID ==
[2021-02-17] MEDS ORDERED: fentaNYL 100 MCG/2 ML SDV IV ONE (18:33)
[2021-02-17] MEDS ORDERED: LORazepam 2 MG/ML SDV IV ONE (18:33)
[2021-02-17 19:09] LABS: ANION GAP 20.3 mEq/L (7-13); CHLORIDE,CL 103 mmol/L (98-107); SODIUM,NA 141 mmol/L (136-145)
[2021-02-17 19:12] LABS: AMPHETAMINES,URINE NEGATIVE (NEGATIVE); BARBITURATES,URINE NEGATIVE (NEGATIVE); BENZODIAZEPINE,URINE NEGATIVE (NEGATIVE); MDMA (ECSTASY), URINE NEGATIVE (NEGATIVE); METHADONE,URINE NEGATIVE (NEGATIVE); METHAMPHETAMINES,URINE NEGATIVE (NEGATIVE); OPIATES,URINE NEGATIVE (NEGATIVE); OXYCODONE,URINE NEGATIVE (NEGATIVE); PHENCYCLIDINE,URINE NEGATIVE (NEGATIVE); TCA,URINE NEGATIVE (NEGATIVE)
[2021-02-17] MEDS ORDERED: Iopamidol 612 MG/ML 100 ML Bottle IVPUSH ONE (19:22)
[2021-02-17] MEDS ORDERED: fentaNYL 100 MCG/2 ML SDV IVPUSH ONE (19:34)
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
[2021-02-17] MEDS ORDERED: LORazepam 2 MG/ML SDV IVPUSH ONE (19:56)
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
== END 2021-02-17 20:56 | disposition home or self-care (01) ==
LOC: DL.ED 18:32
DX: F10.129 Alcohol abuse with intoxication, unspecified (principal); S80.212A Abrasion, left knee, initial encounter; S80.211A Abrasion, right knee, initial encounter; Y90.8 Blood alcohol level of 240 mg/100 ml or more; V49.10XA Passenger injured in collision with unspecified motor vehicles in nontraffic accident, initial encounter; Y92.410 Unspecified street and highway as the place of occurrence of the external cause
CPT/HCPCS: 36415; 70450; 71260; 72125; 72128; 72131; 74177; 80053; 80305; 80307; 81001; 81025; 85025; 85610; 93005; 96374; 96375; 99285; J2060; J3010; Q9967

== ENCOUNTER 2021-02-22 18:45 | Emergency (ER) | payer MEDICAID ==
[2021-02-22 18:40] VITALS: BP 131/72; PULSE 87
[2021-02-22] MEDS ORDERED: LORazepam 1 MG Tab PO ONE (18:46)
[2021-02-22 19:00] LABS: AMPHETAMINES,URINE NEGATIVE (NEGATIVE); BARBITURATES,URINE NEGATIVE (NEGATIVE); BENZODIAZEPINE,URINE NEGATIVE (NEGATIVE); MDMA (ECSTASY), URINE NEGATIVE (NEGATIVE); METHADONE,URINE NEGATIVE (NEGATIVE); METHAMPHETAMINES,URINE NEGATIVE (NEGATIVE); OPIATES,URINE NEGATIVE (NEGATIVE); OXYCODONE,URINE NEGATIVE (NEGATIVE); PHENCYCLIDINE,URINE NEGATIVE (NEGATIVE); TCA,URINE NEGATIVE (NEGATIVE)
[2021-02-22 19:22] LABS: ANION GAP 12.4 mEq/L (7-13); CHLORIDE,CL 106 mmol/L (98-107); SODIUM,NA 143 mmol/L (136-145)
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
[2021-02-22] MEDS ORDERED: LORazepam 1 MG Tab ONE (23:26)
[2021-02-22] MEDS ORDERED: Acetaminophen 325 MG Tab PO ONE (23:29)
== END 2021-02-22 23:55 | disposition other institution (70) ==
LOC: DL.ED 18:45
DX: F10.129 Alcohol abuse with intoxication, unspecified (principal); Z20.822 Contact with and (suspected) exposure to COVID-19
CPT/HCPCS: 36415; 71111; 80053; 80305; 80307; 81003; 81025; 82150; 83605; 83690; 83735; 84484; 85025; 86140; 87635; 99284; A9270; U0002

== ENCOUNTER 2023-10-23 16:52 | Emergency (ER) | payer MEDICAID ==
[2023-10-23 17:19] VITALS: BP 134/78; PULSE 75
[2023-10-23] MEDS: Iopamidol 755 Mg/ML 100 ML Bottle IVPUSH ONE (19:32)
[2023-10-23 20:09] LABS: ANION GAP 11.6 mEq/L (7-13); BASOPHILS PERCENT AUTO 0.3 % (0.0-1.0); CALCIUM 8.4 mg/dL (8.5-10.1); CREATININE 0.73 mg/dL (0.55-1.02); EOSINOPHILS PERCENT AUTO 2.4 % (1.0-3.0); EST CRCL DRUG DOSING (CG) 78.85 mL/min; HEMATOCRIT 38.3 % (37.0-47.0); HEMOGLOBIN 12.2 g/dL (12.0-16.0); LYMPHOCYTES PERCENT AUTO 23.4 % (20.5-50.1); MAGNESIUM 1.7 mg/dL (1.8-2.4); MEAN CORPUSCULAR HEMOGLOBIN 24.8 pg (27.0-34.0); MEAN CORPUSCULAR HGB CONC 31.9 g/dL (33.0-35.0); MONOCYTES PERCENT AUTO 5.1 % (2-8); NEUTROPHILS PERCENT AUTO 68.8 % (42.2-75.2); PLATELET COUNT,PLT 393 10^3/uL (150-450); POTASSIUM,K 3.6 mmol/L (3.5-5.1); RED BLOOD CELL COUNT 4.91 10^6/uL (4.2-5.4); WHITE BLOOD CELL COUNT,WBC 7.6 10^3/uL (5.0-10.0)
== END 2023-10-23 20:58 | disposition home or self-care (01) ==
LOC: DL.ED 16:52
DX: R07.89 Other chest pain (principal); E83.42 Hypomagnesemia; E66.9 Obesity, unspecified; Z79.899 Other long term (current) drug therapy; Z68.34 Body mass index [BMI] 34.0-34.9, adult
CPT/HCPCS: 36415; 71045; 71275; 80048; 83735; 84484; 85025; 85379; 93005; 99285; Q9967; 93010; 99284